=== PATIENT | male | born 2000 | race Two or more races ===

== ENCOUNTER → 2022-08-07 | Outpatient (CLI) | payer OTHER ==
[~2022-08-07] MED LIST: ISOVUE-370 76% 100ML VIAL As Ordered ONE
== END ==
LOC: M RAD 08:48
PROVIDERS: ATTEND Physician Assistant
DX: R07.9 Chest pain, unspecified (principal)
CPT/HCPCS: 71275; Q9967

== ENCOUNTER 2022-12-11 19:06 | Emergency (ER) | payer OTHER ==
[~2022-12-11] VITALS: Ht 185.4 cm; Wt 93.6 kg
[2022-12-11 19:08] VITALS: TEMP 97.3
[2022-12-11 20:16] LABS: BASO % 0.9 % (0.0-1.0); EOS # 0.2 10^3/uL (0.0-0.5); EOS % 3.8 % (0.0-3.0); HEMATOCRIT 43.8 % (42.0-52.0); HEMOGLOBIN 14.8 g/dl (13.5-17.5); LYMPH # 1.8 10^3/uL (1.5-5.0); LYMPH % 39.8 % (24.0-44.0); MEAN CORPUSCULAR HEMOGLOBIN 27.3 pg (27.0-33.0); MEAN CORPUSCULAR HGB CONC 33.8 g/dl (32.0-36.5); MEAN CORPUSCULAR VOLUME 80.7 fl (80.0-96.0); MONO # 0.6 10^3/uL (0.0-0.8); MONO % 12.2 % (2.0-8.0); NEUTROPHILS % 43.3 % (36.0-66.0); PLATELET COUNT, AUTOMATED 241 10^3/uL (150-450); RED BLOOD COUNT 5.43 10^6/uL (4.30-6.10); WHITE BLOOD COUNT 4.5 10^3/uL (4.0-10.0)
[2022-12-11 20:28] LABS: LIPASE 43 U/L (12-53)
[2022-12-11 20:30] LABS: ALBUMIN 4.3 G/DL (3.2-5.2); ALKALINE PHOSPHATASE 91 U/L (46-116); ALT/SGPT 36 U/L (7.0-40); AST/SGOT 26 U/L (<34); BILIRUBIN,DIRECT 0.2 MG/DL (<0.4); BILIRUBIN,TOTAL 0.4 MG/DL (0.3-1.2); BLOOD UREA NITROGEN 13 MG/DL (9-23); CALCIUM LEVEL 9.7 MG/DL (8.5-10.1); CARBON DIOXIDE LEVEL 30 MMOL/L (20-31); CHLORIDE LEVEL 105 MMOL/L (98-107); CREATININE FOR GFR 1.22 MG/DL (0.70-1.30); GLUCOSE, FASTING 89 MG/DL (60-100); POTASSIUM SERUM 4.3 MMOL/L (3.5-5.1); SODIUM LEVEL 141 MMOL/L (136-145)
[2022-12-11] MEDS ORDERED: methocarbamoL 500 MG TAB PO ONE (22:50)
[2022-12-11] MEDS ORDERED: ACETAMINOPHEN 500 MG TAB PO ONE (22:50)
[2022-12-11 23:44] LABS: CK-MB VALUE MASS < 1.0 NG/ML (<3.6)
[2022-12-11 23:47] LABS: CPK CREATINE PHOSPHOKINASE 342 U/L (46-171); MB/CK RELATIVE INDEX 0.29 (< OR =4)
[2022-12-12] MEDS ORDERED: METH-1164 PO (00:12)
[2022-12-12 00:23] VITALS: BP 145/72; O2SAT 99
== END 2022-12-12 00:25 | disposition home or self-care (01) ==
LOC: M ED 19:06
DX: R07.89 Other chest pain (principal); Z79.891 Long term (current) use of opiate analgesic

== ENCOUNTER → 2023-01-26 | Outpatient (CLI) | payer OTHER ==
[~2023-01-26] MED LIST changes: +METH-1164 PO
== END ==
LOC: M RAD 07:54
PROVIDERS: ATTEND Physician Assistant
DX: J98.4 Other disorders of lung (principal)
CPT/HCPCS: 71275; Q9967